=== PATIENT | female | born 1990 | race African-American/Black ===

== ENCOUNTER 2025-07-12 04:10 | Inpatient (IN) | payer MEDICAID ==
[~2025-07-12] VITALS: Ht 172.7 cm; Wt 109.6 kg
[2025-07-12] MEDS ORDERED: REMEDY ESSENTIAL ZINC PASTE 113 GM TP PRN (06:30)
[2025-07-12] MEDS ORDERED: ONDANSETRON 4 MG/2 ML VIAL IV PRN (06:30)
[2025-07-12] MEDS ORDERED: ACETAMINOPHEN 325 MG TABLET PO PRN (06:30)
[2025-07-12] MEDS ORDERED: DEXTROSE 50% 50 ML DISP.SYRIN IV PRN (06:30)
[2025-07-12] MEDS ORDERED: ZOLPIDEM 5 MG TABLET PO PRN (06:30)
[2025-07-12] MEDS ORDERED: MAGNESIUM HYDROXIDE 30 ML LIQUID UDC PO PRN (06:30)
[2025-07-12] MEDS: PANTOPRAZOLE SODIUM 40 MG TABLET.DR PO SCH (06:46)
[2025-07-12] MEDS: BLOOD SUGAR DIAGNOSTIC 1 EACH STRIP VI SCH (06:49)
[2025-07-12] MEDS: INSULIN REGULAR, HUMAN 1000 UNIT/10 ML VIAL SQ PRN (09:10)
[2025-07-12] MEDS: HYDROCODONE/APAP 5-325MG TABLET PO PRN (09:16)
[2025-07-12 09:58] LABS: PLATELET COUNT (AUTO) 246 K/uL (179-408); RED BLOOD CELL COUNT(AUTO) 4.69 MIL/uL (3.63-4.92); RED CELL DISTRIBUTION WIDTH 12.5 % (12.3-17.7); WHITE BLOOD COUNT (AUTO) 4.3 K/uL (3.8-11.8)
[2025-07-12 10:16] LABS: CREATININE 0.6 mg/dL (0.6-1.3); SODIUM SERUM 140 mmol/L (136-145); UREA NITROGEN, BLOOD 12 mg/dL (7-18)
[2025-07-12 11:34] VITALS: BP 129/89; TEMP 98.5; O2SAT 97
[2025-07-12] MEDS ORDERED: CHOL-35 PO (12:32)
[2025-07-12] MEDS ORDERED: CETI-355 PO (12:32)
[2025-07-12] MEDS ORDERED: SEMA0.5P SQ (12:32)
[2025-07-12] MEDS ORDERED: KETO120S5 TP (12:32)
[2025-07-12] MEDS ORDERED: INSU100I49 SQ ×2 (12:32)
[2025-07-12] MEDS ORDERED: FLUT16SP16 NS (12:32)
[2025-07-12] MEDS ORDERED: OMEG1CAP55 PO (12:32)
[2025-07-12] MEDS ORDERED: POLY17PO4 PO (12:32)
[2025-07-12] MEDS ORDERED: ATOR40TA PO (12:32)
[2025-07-12] MEDS ORDERED: MAGN400O6 PO (12:32)
[2025-07-12] MEDS ORDERED: CALC-959 PO (12:32)
[2025-07-12] MEDS ORDERED: FLUT1BLS4 IH (12:32)
[2025-07-12] MEDS ORDERED: MULT-594 PO (12:32)
[2025-07-12] MEDS ORDERED: ACET-73 PO (12:32)
[2025-07-12] MEDS ORDERED: CYCL5TAB PO (12:32)
[2025-07-12] MEDS ORDERED: LIDO30AD10 TD (12:32)
[2025-07-12] MEDS ORDERED: HYDR50CA5 PO (12:32)
[2025-07-12] MEDS ORDERED: MECL-159 PO (12:32)
[2025-07-12] MEDS ORDERED: METF-442 PO (12:32)
[2025-07-12] MEDS ORDERED: ALBU18HF2 IH (12:32)
[2025-07-12] MEDS ORDERED: DICL100G31 TP (12:32)
[2025-07-12] MEDS ORDERED: ONDA4TAB5 PO (12:32)
[2025-07-12] MEDS ORDERED: FAMO20TA8 PO (12:32)
[2025-07-12] MEDS ORDERED: IBUP-1490 PO (12:32)
[2025-07-12] MEDS ORDERED: ALBUTEROL SULFATE 8 GM HFA.AER.AD IH PRN (12:45)
[2025-07-12] MEDS ORDERED: HYDROXYZINE PAMOATE 50 MG PO PRN (12:45)
[2025-07-12] MEDS ORDERED: ALBUTEROL SULFATE 2.5 MG/3 ML NEBU NEB PRN (13:00)
[2025-07-12 15:09] VITALS: BP 105/66; TEMP 98.5; O2SAT 100
[2025-07-12] MEDS: IV NS 1000 ML 1,000 ML IV PRN (15:16)
[2025-07-12] MEDS ORDERED: FAMOTIDINE 20 MG TABLET PO SCH (17:00)
[2025-07-12] MEDS: HUM INSULIN NPH/REG INSULIN HM 70/30 1000 UNITS/10 ML VIAL SQ SCH (17:16)
[2025-07-12] MEDS: METFORMIN HCL 500 MG TABLET PO SCH (17:18)
[2025-07-12 19:55] VITALS: BP 128/92; TEMP 97.7; O2SAT 98
[2025-07-12] MEDS: ATORVASTATIN 40 MG TABLET PO SCH (20:28)
[2025-07-12] MEDS: INSULIN REGULAR, HUMAN 300 UNITS/3 ML VIAL SQ PRN (20:37)
[2025-07-13 05:30] VITALS: BP 100/66; TEMP 97.8; O2SAT 98
[2025-07-13 07:36] LABS: PLATELET COUNT (AUTO) 247 K/uL (179-408); RED BLOOD CELL COUNT(AUTO) 4.66 MIL/uL (3.63-4.92); RED CELL DISTRIBUTION WIDTH 12.8 % (12.3-17.7); WHITE BLOOD COUNT (AUTO) 4.4 K/uL (3.8-11.8)
[2025-07-13 07:56] LABS: CREATININE 0.6 mg/dL (0.6-1.3); SODIUM SERUM 140 mmol/L (136-145); UREA NITROGEN, BLOOD 13 mg/dL (7-18)
[2025-07-13] MEDS: HUM INSULIN NPH/REG INSULIN HM 70/30 1000 UNITS/10 ML VIAL SQ SCH (08:37)
[2025-07-13] MEDS: FLUTICASONE PROP NASAL SPRAY 16 GM BOTTLE NS SCH (08:39)
[2025-07-13] MEDS: CALCIUM CARB/VITAMIN D 600-400 MG TABLET PO SCH (08:40)
[2025-07-13] MEDS: LIDOCAINE 5% PATCH TD SCH (08:41)
[2025-07-13] MEDS: CHOLECALCIFEROL 1,000 UNIT TABLET PO SCH (08:41)
[2025-07-13] MEDS: HYDROXYZINE PAMOATE 25 MG CAPSULE PO PRN (12:39)
[2025-07-13 15:50] VITALS: BP 122/76; TEMP 97.8; O2SAT 97
[2025-07-13] MEDS: MUPIROCIN 2% OINT 22 GM TUBE NS SCH (16:27)
[2025-07-13 19:55] VITALS: BP 123/81; TEMP 97.9; O2SAT 95
[2025-07-14 06:36] VITALS: BP 124/60; TEMP 98.2; O2SAT 95
[2025-07-14 12:00] VITALS: BP 119/82; TEMP 98.4; O2SAT 97
== END 2025-07-14 16:34 | DRG 420 ==
LOC: MEDSURG3 04:10
PROVIDERS: ADMIT Nurse Practitioner Acute Care; ATTEND Internal Medicine
DX: E11.65 Type 2 diabetes mellitus with hyperglycemia (principal); E66.9 Obesity, unspecified; J45.909 Unspecified asthma, uncomplicated; Z79.84 Long term (current) use of oral hypoglycemic drugs; Z79.4 Long term (current) use of insulin; Z68.36 Body mass index [BMI] 36.0-36.9, adult; Z88.2 Allergy status to sulfonamides; Z22.322 Carrier or suspected carrier of Methicillin resistant Staphylococcus aureus
CPT/HCPCS: 36415; 83735; 84100; 84443; 85025; G0378; J1815; J3535; J7040